=== PATIENT | female | born 1985 | race Caucasian/White ===

== ENCOUNTER 2018-07-07 13:54 | Emergency (ER) | payer OTHER ==
[~2018-07-07] VITALS: Ht 165.1 cm; Wt 64.4 kg
[2018-07-07 13:54] VITALS: BP 130/90
[2018-07-07] MEDS ORDERED: ALPRAZOLAM 0.25 MG TABLET ONE (14:18)
[2018-07-07] MEDS ORDERED: ALPRAZOLAM 0.25 MG TABLET PO ONE (14:30)
== END 2018-07-07 14:44 | disposition home or self-care (01) ==
LOC: ER 13:54
DX: F41.9 Anxiety disorder, unspecified (principal); Z79.899 Other long term (current) drug therapy
CPT/HCPCS: 99284; A4606; Z7610